=== PATIENT | female | born 2000 | race Caucasian/White ===

== ENCOUNTER 2023-01-09 10:19 | Emergency (ER) | payer MEDICAID, OTHER ==
[2023-01-09 10:36] VITALS: BP 127/79
[2023-01-09 11:00] LABS: BASOPHILS % (AUTO) 0.8 %; EOSINOPHILS # (AUTO) 0.1 10^3/uL (0.0-0.7); EOSINOPHILS % (AUTO) 1.3 %; HCT - HEMATOCRIT 47.9 % (37.0-47.0); HGB - HEMOGLOBIN 15.4 g/dL (12.0-16.0); LYMPHOCYTES # (AUTO) 1.6 10^3/uL (1.5-3.5); LYMPHOCYTES % (AUTO) 31.2 %; MEAN CORPUSCULAR HEMOGLOBIN 29.6 pg (27.0-31.0); MEAN CORPUSCULAR HGB CONC 32.2 g/dL (32.0-36.0); MEAN CORPUSCULAR VOLUME 92.1 fL (81.0-99.0); MEAN PLATELET VOLUME 12.8 fL (7.9-10.8); MONOCYTES # (AUTO) 0.5 10^3/uL (0.0-1.0); MONOCYTES % (AUTO) 9.3 %; NEUTROPHILS % (AUTO) 57.2 %; PLT - PLATELET COUNT 214 10^3/uL (130-450); RED CELL DISTRIBUTION WIDTH 13.3 % (12.0-15.0); WHITE BLOOD COUNT 5.3 x10^3/uL (4.8-10.8)
[2023-01-09 11:10] LABS: ALBUMIN 5.1 g/dL (3.2-5.5); ALBUMIN/GLOBULIN RATIO 1.6 (1.0-2.2); BILIRUBIN,TOTAL 0.6 mg/dL (0.2-1.0); BILIRUBIN,URINE NEGATIVE (NEGATIVE); GLUCOSE, URINE (UA) NEGATIVE (NEGATIVE); KETONES,URINE (UA) NEGATIVE (NEGATIVE); LEUKOCYTE ESTERASE, URINE NEGATIVE (NEGATIVE); NITRITE,URINE NEGATIVE (NEGATIVE); OCCULT BLOOD,URINE NEGATIVE (NEGATIVE); POTASSIUM 3.7 mmol/L (3.5-4.5); PROTEIN,URINE NEGATIVE (NEGATIVE); TOTAL PROTEIN 8.2 g/dL (6.4-8.9); UROBILINOGEN,URINE 0.2 (NORMAL) E.U./dL (NORMAL)
[2023-01-09 11:11] LABS: CLARITY,URINE CLEAR (CLEAR); HCG UR QUAL NEGATIVE
[2023-01-09] MEDS ORDERED: KETOROLAC 15 MG/ML VIAL IVP STA (11:33)
--- NOTE | 2023-01-09 12:24 | Ultrasound Report ---
PROCEDURE: Abdomen Limited INDICATIONS: RUQ PAIN TECHNIQUE: Real-time focused scanning was performed of the abdomen, with image documentation. COMPARISONS: None. FINDINGS: Liver: Liver is normal in size and homogeneous in echotexture. Gallbladder: Unremarkable. No gallstones. Gallbladder wall thickening, pericholecystic fluid collecti on or sonographic Pollock sign. Biliary ducts: Intrahepatic bile ducts are non-dilated. Extrahepatic bile duct caliber measures 3 m m. Normal is 6-7 mm or less in diameter, or 10 mm or less post-cholecystectomy. Pancreas: Visualized portions of the pancreas are sonographically normal. Right kidney: Normal in size and echotexture. Right kidney measures 8.8 cm long. No hydronephrosis o r nephrolithiasis. No solid masses. No complex renal cystic lesions which require follow-up. Aorta: Visualized aorta is normal in caliber at less than 3 cm. IVC: Intrahepatic inferior vena cava is patent. Miscellaneous: No free abdominal fluid. IMPRESSION: Unremarkable abdominal ultrasound. A cause for right upper quadrant pain is not identified. Reviewed by: Martínez Cuenca MD on 01/09/2023 12:23 PM PDT Approved by: Martínez Cuenca MD on 01/09/2023 12:23 PM PDT Station ID: [id number]
--- NOTE | 2023-01-09 12:57 | ED Physician Documentation ---
PD HPI ABD PAIN - Stated complaint Stated Complaint: RT ABD SIDE PX - Chief complaint Chief Complaint: Abd Pain - History obtained from History obtained from: Patient - Additional information Additional information: 22-year-old female presents from home by private vehicle for 1 week of right upper quadrant abdominal pain. Of note, triage note states right lower quadrant, however patient points to her right upper quadrant as source of pain. Worse with movement and palpation. Associated mild nausea today. Review of Systems Constitutional: denies: Fever, Chills Cardiac: denies: Chest pain / pressure, Palpitations Respiratory: denies: Dyspnea, Cough, Wheezing GI: reports: Abdominal Pain, Nausea. denies: Vomiting : denies: Dysuria, Frequency, Hesitancy, LMP, Vaginal bleeding, Irregular menses, Missed period, Now EGA PD PAST MEDICAL HISTORY - Past Medical History Past Medical History: No Cardiovascular: None Respiratory: None Endocrine/Autoimmune: None GI: None LACE MENDER: None : None HEENT: None Psych: Depression, Other Musculoskeletal: None Derm: None - Past Surgical History Past Surgical History: No - Present Medications Home Medications: Ambulatory Orders Medication Instructions Recorded Confirmed No Known Home Medications 07/06/14 01/09/23 - Allergies Allergies/Adverse Reactions: Allergies Allergy/AdvReac Type Severity Reaction Status Date / Time No Known Drug Allergies Allergy Verified 01/09/23 10:33 - Social History Does the pt smoke?: No Smoking Status: Never smoker Does the pt drink ETOH?: No Does the pt have substance abuse?: No - Immunizations Immunizations are current?: Yes - POLST Patient has POLST: No PD ED PE NORMAL - Vitals Vital signs reviewed: Yes - General General: Alert and oriented X 3, No acute distress, Well developed/nourished - HEENT HEENT: Atraumatic - Cardiac Cardiac: RRR, Strong equal pulses - Respiratory Respiratory: No respiratory distress, Clear bilaterally - Abdomen Abdomen: Soft, Non distended, Other (RUQ tender to deep palpation) - Derm Derm: Normal color, Warm and dry, No rash - Extremities Extremities: No deformity, No tenderness to palpate, Normal ROM s pain - Neuro Neuro: Alert and oriented X 3, 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, No motor deficit, Normal speech - Psych Psych: Normal mood, Normal affect Results - Vitals Vitals: Oxygen O2 Source Room air - Labs Labs: Laboratory Tests 01/09/23 01/09/23 01/09/23 10:52 10:52 10:52 WBC 5.3 RBC 5.20 Hgb 15.4 Hct 47.9 H MCV 92.1 MCH 29.6 MCHC 32.2 RDW 13.3 Plt Count 214 MPV 12.8 H Neut # (Auto) 3.0 Lymph # (Auto) 1.6 [place] # (Auto) 0.5 Eos # (Auto) 0.1 Baso # (Auto) 0.0 Absolute Nucleated RBC 0.00 Nucleated RBC % 0.0 Sodium 140 Potassium 3.7 Chloride 106 Carbon Dioxide 27 Anion Gap 7.0 BUN 7 Creatinine 1.0 Estimated GFR (MDRD) 69 L Glucose 88 Calcium 10.0 Total Bilirubin 0.6 AST 15 ALT 10 Alkaline Phosphatase 55 Total Protein 8.2 Albumin 5.1 Globulin 3.1 Albumin/Globulin Ratio 1.6 Lipase 12 Urine Color YELLOW Urine Clarity CLEAR Urine pH 7.0 Ur Specific [place] 1.015 Urine Protein NEGATIVE Urine Glucose (UA) NEGATIVE Urine Ketones NEGATIVE Urine Occult Blood NEGATIVE Urine Nitrite NEGATIVE Urine Bilirubin NEGATIVE Urine Urobilinogen 0.2 (NORMAL) Ur Leukocyte Esterase NEGATIVE Ur Microscopic Review NOT INDICATED Urine Culture Comments NOT INDICATED Urine HCG, Qual NEGATIVE PD Medical Decision Making - ED course Complexity details: reviewed results, re-evaluated patient, considered differential, d/w patient ED course: 1 week of symptoms. Abdomen soft, no peritoneal signs. Pain improved with toradol. Labs unremarkable, US shows no acute findings. PERC negative. Patient advised of results, she is relieved to know her gallbladder appears normal today. She will follow with her PCP. Tylenol and motrin advised for pain control. Departure - Departure Disposition: 01 Home, Self Care Clinical Impression: Abdominal pain Qualifiers: Abdominal location: right upper quadrant Qualified Code(s): R10.11 - Right upper quadrant pain Condition: Stable Instructions: Abdominal Pain Forms: PCP List Discharge Date/Time: 01/09/23 13:08
== END 2023-01-09 13:08 | disposition home or self-care (01) ==
LOC: ED 10:19
DX: R10.11 Right upper quadrant pain (principal)
CPT/HCPCS: 36415; 80053; 81001; 81003; 81025; 83690; 85025; 87086; 96374; 99283

== ENCOUNTER 2023-02-18 10:55 | Emergency (ER) | payer MEDICAID ==
[2023-02-18] MEDS ORDERED: SODIUM CHLORIDE 0.9% 1,000 ML IV STA (11:39)
[2023-02-18 11:51] LABS: BASOPHILS % (AUTO) 0.3 %; EOSINOPHILS # (AUTO) 0.1 10^3/uL (0.0-0.7); EOSINOPHILS % (AUTO) 0.5 %; HCT - HEMATOCRIT 41.9 % (37.0-47.0); HGB - HEMOGLOBIN 13.9 g/dL (12.0-16.0); LYMPHOCYTES # (AUTO) 1.4 10^3/uL (1.5-3.5); LYMPHOCYTES % (AUTO) 13.4 %; MEAN CORPUSCULAR HEMOGLOBIN 29.9 pg (27.0-31.0); MEAN CORPUSCULAR HGB CONC 33.2 g/dL (32.0-36.0); MEAN CORPUSCULAR VOLUME 90.1 fL (81.0-99.0); MONOCYTES # (AUTO) 0.7 10^3/uL (0.0-1.0); MONOCYTES % (AUTO) 6.2 %; NEUTROPHILS # (AUTO) 8.4 10^3/uL (1.5-6.6); NEUTROPHILS % (AUTO) 79.4 %; PLT - PLATELET COUNT 239 10^3/uL (130-450); RED BLOOD COUNT 4.65 10^6/uL (4.20-5.40); RED CELL DISTRIBUTION WIDTH 12.6 % (12.0-15.0); WHITE BLOOD COUNT 10.6 x10^3/uL (4.8-10.8)
[2023-02-18 12:09] LABS: ALBUMIN 4.7 g/dL (3.2-5.5); ALBUMIN/GLOBULIN RATIO 1.9 (1.0-2.2); BILIRUBIN,TOTAL 0.6 mg/dL (0.2-1.0); CALCIUM 9.7 mg/dL (8.5-10.3); CREATININE 0.8 mg/dL (0.6-1.3); POTASSIUM 3.9 mmol/L (3.5-4.5); TOTAL PROTEIN 7.2 g/dL (6.4-8.9)
[2023-02-18] MEDS ORDERED: METOCLOPRAMIDE 10 MG/2 ML VIAL IVP STA (13:04)
--- NOTE | 2023-02-18 13:07 | ED Physician Documentation ---
History of Present Illness - Stated complaint Stated Complaint: VOMIT BLOOD - Chief complaint Chief Complaint: Abd Pain - History obtained from History obtained from: Patient - History of Present Illness Pain level max: 0 Pain level now: 0 - Additonal information Additional information: Patient is a 22-year-old female, 2 para 0 who presents to the emergency department stating that she is approximately 6 to 8 weeks . She states that she has been vomiting for the past several days, usually goes away by early afternoon. Today the vomiting has continued. She does not have any pelvic pain, vaginal bleeding or discharge. She states that there was a small amount of bright red blood in the emesis this morning so came in for evaluation. Has an appointment with OB next week. Has not currently on any medications. No fevers. No chills. She states she feels tired. Review of Systems Constitutional: denies: Fever, Chills Nose: denies: Rhinorrhea / runny nose, Congestion Throat: denies: Sore throat Cardiac: denies: Chest pain / pressure, Palpitations Respiratory: denies: Cough GI: reports: Nausea, Vomiting. denies: Diarrhea, Bloody / black stool : reports: Now EGA. 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 : None HEENT: None Psych: Depression, Other Musculoskeletal: None Derm: None - Past Surgical History Past Surgical History: No - Present Medications Home Medications: Ambulatory Orders Medication Instructions Recorded Confirmed Metoclopramide [Reglan] 10 mg PO Q6H PRN #20 tablet 02/18/23 - Allergies Allergies/Adverse Reactions: Allergies Allergy/AdvReac Type Severity Reaction Status Date / Time No Known Drug Allergies Allergy Verified 02/18/23 11:22 - Social History Does the pt smoke?: No Smoking Status: Never smoker Does the pt drink ETOH?: No Does the pt have substance abuse?: No - Immunizations Immunizations are current?: Yes - POLST Patient has POLST: No PD ED PE NORMAL - Vitals Vital signs reviewed: Yes - General General: Alert and oriented X 3, No acute distress - HEENT HEENT: PERRL, Moist mucous membranes - Neck Neck: Supple, no meningeal sign - Cardiac Cardiac: RRR, Strong equal pulses - Respiratory Respiratory: No respiratory distress, Clear bilaterally - Abdomen Abdomen: Soft, Non tender, Non distended - Back Back: No spinal TTP - Derm Derm: Warm and dry - Extremities Extremities: No edema, No calf tenderness / cord - Neuro Neuro: Alert and oriented X 3 - Psych Psych: Normal mood, Normal affect Results - Vitals Vitals: Vital Signs - 24 hr 02/18/23 02/18/23 11:22 13:50 Temperature 37 C Heart Rate 57 L 53 L Respiratory 16 15 Rate Blood Pressure 121/71 96/51 L O2 Saturation 100 97 Oxygen O2 Source Room air - Labs Labs: Laboratory Tests 02/18/23 02/18/23 02/18/23 11:46 11:46 14:23 WBC 10.6 RBC 4.65 Hgb 13.9 Hct 41.9 MCV 90.1 MCH 29.9 MCHC 33.2 RDW 12.6 Plt Count 239 MPV 12.0 H Neut # (Auto) 8.4 H Lymph # (Auto) 1.4 L [place] # (Auto) 0.7 Eos # (Auto) 0.1 Baso # (Auto) 0.0 Absolute Nucleated RBC 0.00 Nucleated RBC % 0.0 Sodium 134 L Potassium 3.9 Chloride 103 Carbon Dioxide 24 Anion Gap 7.0 BUN 9 Creatinine 0.8 Estimated GFR (MDRD) 90 Glucose 92 Calcium 9.7 Total Bilirubin 0.6 AST 10 ALT 6 L Alkaline Phosphatase 49 Total Protein 7.2 Albumin 4.7 Globulin 2.5 Albumin/Globulin Ratio 1.9 Lipase 23 Urine Color YELLOW Urine Clarity CLEAR Urine pH 5.5 Ur Specific [place] 1.015 Urine Protein NEGATIVE Urine Glucose (UA) NEGATIVE Urine Ketones 40 H Urine Occult Blood NEGATIVE Urine Nitrite NEGATIVE Urine Bilirubin NEGATIVE Urine Urobilinogen 0.2 (NORMAL) Ur Leukocyte Esterase NEGATIVE Ur Microscopic Review NOT INDICATED Urine Culture Comments NOT INDICATED PD Medical Decision Making - ED course Complexity details: reviewed results, re-evaluated patient, considered differential, d/w patient ED course: Patient is well-appearing, nontoxic. Afebrile. No significant lab abnormalities. Feels better after IV fluids and IV Reglan. Tolerating p.o. without difficulty. No evidence of UTI. We will place on Reglan for home. We will have her follow-up with her PCP for further care and her OB. No vaginal bleeding or discharge. No pelvic pain or cramping. Patient counseled regarding signs and symptoms for which I believe and urgent re-evaluation would be necessary. Patient with good understanding of and agreement to plan and is comfortable going home at this time This document was made in part using voice recognition software. While efforts are made to proofread this document, sound alike and grammatical errors may occur. Departure - Departure Disposition: 01 Home, Self Care Clinical Impression: Morning sickness, Dehydration Qualifiers: Weeks of gestation: less than 8 weeks Qualified Code(s): Z3A.01 - Less than 8 weeks gestation of Condition: Good Instructions: ED Dehydration, ED Care Follow-Up: your,OB as scheduled [Other] Prescriptions: Metoclopramide [Reglan] 10 mg PO Q6H PRN #20 tablet PRN Reason: Nausea / Vomiting Comments: Please make sure you are drinking plenty of fluids. Your prescription was sent to [facility] in [place]. Please return if you worsen. Forms: PCP List Discharge Date/Time: 02/18/23 15:09
[2023-02-18 13:59] VITALS: BP 96/51; O2SAT 97
[2023-02-18 14:30] LABS: BILIRUBIN,URINE NEGATIVE (NEGATIVE); CLARITY,URINE CLEAR (CLEAR); GLUCOSE, URINE (UA) NEGATIVE (NEGATIVE); KETONES,URINE (UA) 40 mg/dL (NEGATIVE); LEUKOCYTE ESTERASE, URINE NEGATIVE (NEGATIVE); NITRITE,URINE NEGATIVE (NEGATIVE); OCCULT BLOOD,URINE NEGATIVE (NEGATIVE); PH,URINE 5.5 PH (5.0-7.5); PROTEIN,URINE NEGATIVE (NEGATIVE); UROBILINOGEN,URINE 0.2 (NORMAL) E.U./dL (NORMAL)
== END 2023-02-18 15:09 | disposition home or self-care (01) ==
LOC: ED 10:55
DX: O21.1 Hyperemesis gravidarum with metabolic disturbance (principal); Z3A.01 Less than 8 weeks gestation of pregnancy
CPT/HCPCS: 36415; 80053; 81003; 83690; 85025; 96361; 96374; 99282; 99283; J2765; 81001; 87086

== ENCOUNTER 2023-02-23 17:53 | Emergency (ER) | payer MEDICAID ==
[2023-02-23 18:09] VITALS: O2SAT 100
[2023-02-23] MEDS ORDERED: SODIUM CHLORIDE 0.9% 1,000 ML IV STA ×2 (18:10→19:24)
[2023-02-23 18:21] LABS: GLUCOSE, URINE (UA) NEGATIVE (NEGATIVE); KETONES,URINE (UA) >=80 mg/dL (NEGATIVE); LEUKOCYTE ESTERASE, URINE TRACE (NEGATIVE); NITRITE,URINE NEGATIVE (NEGATIVE); OCCULT BLOOD,URINE NEGATIVE (NEGATIVE); PH,URINE 5.5 PH (5.0-7.5); PROTEIN,URINE 30 mg/dL (NEGATIVE); UROBILINOGEN,URINE 0.2 (NORMAL) E.U./dL (NORMAL)
[2023-02-23 18:23] LABS: CLARITY,URINE CLOUDY (CLEAR)
[2023-02-23 18:28] LABS: BASOPHILS % (AUTO) 0.3 %; EOSINOPHILS % (AUTO) 0.1 %; HCT - HEMATOCRIT 41.1 % (37.0-47.0); HGB - HEMOGLOBIN 14.3 g/dL (12.0-16.0); LYMPHOCYTES # (AUTO) 1.5 10^3/uL (1.5-3.5); LYMPHOCYTES % (AUTO) 11.2 %; MEAN CORPUSCULAR HEMOGLOBIN 30.2 pg (27.0-31.0); MEAN CORPUSCULAR HGB CONC 34.8 g/dL (32.0-36.0); MEAN CORPUSCULAR VOLUME 86.9 fL (81.0-99.0); MEAN PLATELET VOLUME 12.1 fL (7.9-10.8); MONOCYTES # (AUTO) 0.7 10^3/uL (0.0-1.0); MONOCYTES % (AUTO) 5.5 %; NEUTROPHILS # (AUTO) 11.1 10^3/uL (1.5-6.6); NEUTROPHILS % (AUTO) 82.5 %; PLT - PLATELET COUNT 257 10^3/uL (130-450); RED BLOOD COUNT 4.73 10^6/uL (4.20-5.40); RED CELL DISTRIBUTION WIDTH 12.1 % (12.0-15.0); WHITE BLOOD COUNT 13.4 x10^3/uL (4.8-10.8)
[2023-02-23 18:30] LABS: BILIRUBIN,URINE NEGATIVE (NEGATIVE); ICTOTEST,URINE NEGATIVE
[2023-02-23 18:31] LABS: BACTERIA,URINE Moderate /HPF (None Seen); MUCUS,URINE Marked Strands; RBC,URINE 0-5 /HPF (0-5); SQUAMOUS EPITHELIAL CELL,UR MANY Squamous (<= Few)
[2023-02-23 18:42] LABS: ALBUMIN/GLOBULIN RATIO 1.9 (1.0-2.2); BILIRUBIN,TOTAL 0.8 mg/dL (0.2-1.0); CALCIUM 10.1 mg/dL (8.5-10.3); CREATININE 0.6 mg/dL (0.6-1.3); POTASSIUM 3.5 mmol/L (3.5-4.5); TOTAL PROTEIN 7.7 g/dL (6.4-8.9)
[2023-02-23] MEDS ORDERED: ONDANSETRON 4 MG/2 ML VIAL IVP STA (18:53)
--- NOTE | 2023-02-23 20:40 | ED Physician Documentation ---
History of Present Illness - Stated complaint Stated Complaint: VOMITING - Chief complaint Chief Complaint: Abd Pain - History obtained from History obtained from: Patient - History of Present Illness Timing: Today Pain level max: 0 Pain level now: 0 - Additonal information Additional information: 22-year-old female presents to the emergency department complaint of nausea and vomiting. She is approximately 10 weeks . Is taking Reglan at home but continued to have vomiting. Sees her OB on Saturday. No hematemesis. No vaginal bleeding or discharge. No pelvic pain. No urinary symptoms. No fevers. No chills. Otherwise asymptomatic. Nothing makes it better or worse. Review of Systems Constitutional: denies: Fever, Chills Respiratory: denies: Cough GI: reports: Nausea, Vomiting. denies: Diarrhea, Hematemesis, Bloody / black stool : reports: Now EGA Skin: denies: Rash Musculoskeletal: denies: Neck pain, Back pain Neurologic: denies: Headache PD PAST MEDICAL HISTORY - Past Medical History Cardiovascular: None Respiratory: None Endocrine/Autoimmune: None GI: None HEALTH ASSESSMENT AND TREATMENT TEACHER: None : None HEENT: None Psych: Depression, Other Musculoskeletal: None Derm: None - Past Surgical History Past Surgical History: No - Present Medications Home Medications: Ambulatory Orders Medication Instructions Recorded Confirmed Metoclopramide [Reglan] 10 mg PO Q6H PRN #20 tablet 02/18/23 02/23/23 Ondansetron Odt [Zofran] 4 mg TL Q6H PRN #10 tablet 02/23/23 - Allergies Allergies/Adverse Reactions: Allergies Allergy/AdvReac Type Severity Reaction Status Date / Time No Known Drug Allergies Allergy Verified 02/23/23 17:56 - Social History Does the pt smoke?: No Smoking Status: Never smoker Does the pt drink ETOH?: No Does the pt have substance abuse?: No - Immunizations Immunizations are current?: Yes - POLST Patient has POLST: No PD ED PE NORMAL - Vitals Vital signs reviewed: Yes - General General: Alert and oriented X 3, No acute distress - HEENT HEENT: PERRL, Other (Dry lips) - Neck Neck: Supple, no meningeal sign - Cardiac Cardiac: RRR, Strong equal pulses - Respiratory Respiratory: No respiratory distress, Clear bilaterally - Abdomen Abdomen: Soft, Non tender, Non distended - Derm Derm: Warm and dry, No rash - Extremities Extremities: No edema, No calf tenderness / cord - Neuro Neuro: Alert and oriented X 3 - Psych Psych: Normal mood, Normal affect Results - Vitals Vitals: Vital Signs - 24 hr 02/23/23 02/23/23 02/23/23 17:57 17:59 19:34 Temperature 36.8 C 36.8 C Heart Rate 65 65 47 L Respiratory 20 20 16 Rate Blood Pressure 136/65 H 136/65 H 100/83 H O2 Saturation 100 100 100 Oxygen O2 Source Room air - Labs Labs: Laboratory Tests 02/23/23 02/23/23 02/23/23 18:14 18:23 18:23 WBC 13.4 H RBC 4.73 Hgb 14.3 Hct 41.1 MCV 86.9 MCH 30.2 MCHC 34.8 RDW 12.1 Plt Count 257 MPV 12.1 H Neut # (Auto) 11.1 H Lymph # (Auto) 1.5 [place] # (Auto) 0.7 Eos # (Auto) 0.0 Baso # (Auto) 0.0 Absolute Nucleated RBC 0.00 Nucleated RBC % 0.0 Sodium 134 L Potassium 3.5 Chloride 101 Carbon Dioxide 21 Anion Gap 12.0 BUN 10 Creatinine 0.6 Estimated GFR (MDRD) 125 Glucose 89 Calcium 10.1 Total Bilirubin 0.8 AST 10 ALT 8 L Alkaline Phosphatase 48 Total Protein 7.7 Albumin 5.0 Globulin 2.7 Albumin/Globulin Ratio 1.9 Lipase 17 Urine Color YELLOW Urine Clarity CLOUDY Urine pH 5.5 Ur Specific [place] >=1.030 H Urine Protein 30 H Urine Glucose (UA) NEGATIVE Urine Ketones >=80 H Urine Occult Blood NEGATIVE Urine Nitrite NEGATIVE Urine Bilirubin NEGATIVE Urine Urobilinogen 0.2 (NORMAL) Ur Leukocyte Esterase TRACE H Urine RBC 0-5 Urine WBC 11-25 H Ur Squamous Epith Cells MANY Squamous H Urine Bacteria Moderate H Urine Mucus Marked Strands Ur Microscopic Review INDICATED Urine Culture Comments NOT INDICATED PD Medical Decision Making - ED course Complexity details: reviewed results, re-evaluated patient, considered differential, d/w patient ED course: Patient is well-appearing, nontoxic. Afebrile. Given IV fluids. Given Zofran. After 2 L of IV fluids and Zofran, patient is eating and drinking without difficulty. Urinalysis appears contaminated. She is not having any symptoms of UTI. We will hold off on antibiotics at this time and have it rechecked with her OB. We will prescribe Zofran for home. Patient counseled regarding signs and symptoms for which I believe and urgent re-evaluation would be necessary. Patient with good understanding of and agreement to plan and is comfortable going home at this time This document was made in part using voice recognition software. While efforts are made to proofread this document, sound alike and grammatical errors may occur. Departure - Departure Disposition: Home, Self Care Clinical Impression: Dehydration, Morning sickness Qualifiers: Weeks of gestation: 10 weeks Qualified Code(s): Z3A.10 - 10 weeks gestation of Condition: Good Instructions: ED Dehydration, ED Preg Established Normal Sxs Follow-Up: your,doctor in 1 week [Other] Prescriptions: Ondansetron Odt [Zofran] 4 mg TL Q6H PRN #10 tablet PRN Reason: Nausea / Vomiting Comments: Your prescriptions were sent to [facility] in [place]. Please drink plenty of fluids. Please follow-up with your OB on Saturday as scheduled. Please return if you worsen Forms: PCP List
[2023-02-23 21:18] VITALS: BP 110/80
== END 2023-02-23 21:11 | disposition home or self-care (01) ==
LOC: ED 17:53
DX: O21.9 Vomiting of pregnancy, unspecified (principal); O99.891 Other specified diseases and conditions complicating pregnancy; E86.0 Dehydration; Z3A.10 10 weeks gestation of pregnancy
CPT/HCPCS: 36415; 80053; 81001; 81003; 83690; 85025; 87086; 96361; 96374; 99283

== ENCOUNTER 2023-07-24 06:06 | Outpatient (CLI) | payer MEDICAID ==
[2023-07-24 06:42] VITALS: BP 127/57
[2023-07-24] MEDS: PROMETHAZINE 25 MG TABLET PO PRN (07:05)
[2023-07-24 07:59] LABS: BASOPHILS % (AUTO) 0.3 %; EOSINOPHILS % (AUTO) 0.3 %; HCT - HEMATOCRIT 35.5 % (37.0-47.0); HGB - HEMOGLOBIN 11.8 g/dL (12.0-16.0); LYMPHOCYTES # (AUTO) 0.4 10^3/uL (1.5-3.5); LYMPHOCYTES % (AUTO) 3.6 %; MEAN CORPUSCULAR HEMOGLOBIN 31.2 pg (27.0-31.0); MEAN CORPUSCULAR HGB CONC 33.2 g/dL (32.0-36.0); MEAN CORPUSCULAR VOLUME 93.9 fL (81.0-99.0); MEAN PLATELET VOLUME 11.9 fL (7.9-10.8); MONOCYTES # (AUTO) 0.4 10^3/uL (0.0-1.0); MONOCYTES % (AUTO) 3.4 %; NEUTROPHILS # (AUTO) 10.8 10^3/uL (1.5-6.6); NEUTROPHILS % (AUTO) 91.9 %; PLT - PLATELET COUNT 195 10^3/uL (130-450); RED BLOOD COUNT 3.78 10^6/uL (4.20-5.40); RED CELL DISTRIBUTION WIDTH 12.2 % (12.0-15.0); WHITE BLOOD COUNT 11.8 x10^3/uL (4.8-10.8)
--- NOTE | 2023-07-24 08:04 | PROVIDER PROGRESS NOTE ---
- HPI Chief Complaint: Other (Vomiting) Current : Vital Signs Temperature 97.3 F L 07/24/23 06:24 Heart Rate 83 07/24/23 06:24 Respiratory Rate 18 07/24/23 06:24 Blood Pressure 127/57 L 07/24/23 06:24 Temperature 97.3 F L 07/24/23 06:24 Heart Rate 83 07/24/23 06:24 Respiratory Rate 18 07/24/23 06:24 Blood Pressure 127/57 L 07/24/23 06:24 O2 Saturation If not protocol: Oxygen Flow, liters/minute - Procedures OB Procedure Performed: NST Diagnosis/Indication for NST: Other (assure well-being) Service Date of procedure: 07/24/23 (Read 07/24/23) - Plan Plan: Patient is a 22-year-old G2, P0 at 28 weeks gestation presenting for nausea and vomiting. She was around sick relatives yesterday but thought bad food poisoni ng, and about 2 AM started having multiple episodes of emesis. Took some Zofran, this did not seem to help much. Since arrival did get a dose of promethazine and does say she feels better afterwards, although sleepy. The emesis bag is at the table. Does that she vomited once since arrival. Physical Exam Constitutional: alert, no acute distress. Well-hydrated. Cardiovascular: Regular rate and rhythm. Respiratory: no respiratory distress. Abdomen: nondistended, nontender, no guarding. Psych: affect and mood appropriate, normal interaction, good eye contact. FHT: 125 beats per baseline, moderate variability, accelerations present, no decelerations. Reactive NST [place]: Quiescent Acute Laboratory Last Values WBC 11.8 x10^3/uL (4.8-10.8) H 07/24/23 07:53 RBC 3.78 10^6/uL (4.20-5.40) L 07/24/23 07:53 Hgb 11.8 g/dL (12.0-16.0) L 07/24/23 07:53 Hct 35.5 % (37.0-47.0) L 07/24/23 07:53 MCV 93.9 fL (81.0-99.0) 07/24/23 07:53 MCH 31.2 pg (27.0-31.0) H 07/24/23 07:53 MCHC 33.2 g/dL (32.0-36.0) 07/24/23 07:53 RDW 12.2 % (12.0-15.0) 07/24/23 07:53 Plt Count 195 10^3/uL (130-450) 07/24/23 07:53 MPV 11.9 fL (7.9-10.8) H 07/24/23 07:53 Neut # (Auto) 10.8 10^3/uL (1.5-6.6) H 07/24/23 07:53 Lymph # (Auto) 0.4 10^3/uL (1.5-3.5) L 07/24/23 07:53 [place] # (Auto) 0.4 10^3/uL (0.0-1.0) 07/24/23 07:53 Eos # (Auto) 0.0 10^3/uL (0.0-0.7) 07/24/23 07:53 Baso # (Auto) 0.0 10^3/uL (0.0-0.1) 07/24/23 07:53 Absolute Nucleated RBC 0.00 x10^3/uL 07/24/23 07:53 Nucleated RBC % 0.0 /100WBC 07/24/23 07:53 Sodium 136 mmol/L (135-145) 07/24/23 07:53 Potassium 3.9 mmol/L (3.5-4.5) 07/24/23 07:53 Chloride 106 mmol/L (101-111) 07/24/23 07:53 Carbon Dioxide 24 mmol/L (21-32) 07/24/23 07:53 Anion Gap 6.0 (6-13) 07/24/23 07:53 BUN 10 mg/dL (6-20) 07/24/23 07:53 Creatinine 0.6 mg/dL (0.6-1.3) 07/24/23 07:53 Estimated GFR (MDRD) 125 (>89) 07/24/23 07:53 Glucose 102 mg/dL (74-104) 07/24/23 07:53 Calcium 8.6 mg/dL (8.5-10.3) 07/24/23 07:53 Total Bilirubin 0.4 mg/dL (0.2-1.0) 07/24/23 07:53 AST 11 IU/L (10-42) 07/24/23 07:53 ALT 8 IU/L (10-60) L 07/24/23 07:53 Alkaline Phosphatase 50 IU/L (42-121) 07/24/23 07:53 Total Protein 6.2 g/dL (6.4-8.9) L 07/24/23 07:53 Albumin 3.6 g/dL (3.2-5.5) 07/24/23 07:53 Globulin 2.6 g/dL (2.1-4.2) 07/24/23 07:53 Albumin/Globulin Ratio 1.4 (1.0-2.2) 07/24/23 07:53 gastroenteritis -Multiple family members with similar symptoms. Likely will resolve in 1 to 2 days. Patient feels better after medication and is tolerating PO liquid. -Encourage small, frequent sips of water and small meals as tolerated. Encouraged not to have large quantities at once. -No fever. Mildly high neutrophils, but no significant leukocytosis. -Antiemetics sent to pharmacy.
[2023-07-24 08:16] LABS: ALBUMIN 3.6 g/dL (3.2-5.5); ALBUMIN/GLOBULIN RATIO 1.4 (1.0-2.2); BILIRUBIN,TOTAL 0.4 mg/dL (0.2-1.0); CALCIUM 8.6 mg/dL (8.5-10.3); CREATININE 0.6 mg/dL (0.6-1.3); POTASSIUM 3.9 mmol/L (3.5-4.5); TOTAL PROTEIN 6.2 g/dL (6.4-8.9)
== END 2023-07-24 08:35 | disposition home or self-care (01) ==
LOC: WFO 06:06 → FBP 06:08 → WFO 08:35
PROVIDERS: ATTEND Obstetrics & Gynecology
DX: O99.613 Diseases of the digestive system complicating pregnancy, third trimester (principal); K52.9 Noninfective gastroenteritis and colitis, unspecified; Z3A.28 28 weeks gestation of pregnancy
CPT/HCPCS: 36415; 59025; 80053; 85025; 99214; Q0169